=== PATIENT | male | born 1995 | race Caucasian/White ===

== ENCOUNTER 2019-02-01 17:39 | Emergency (ER) | payer BC ==
--- NOTE | 2019-02-01 18:37 | RAD REPORT ---
EXAM DESCRIPTION: RAD - Lumbar Spine 3 Views - 02/01/2019 6:23 pm CLINICAL HISTORY: PAIN Radiculopathy COMPARISON: <Comparisons> FINDINGS: Vertebral body heights appear maintained. No compression fracture noted. Disc spaces are m aintained. No spondylolysis or spondylolisthesis. IMPRESSION: Negative study.
[2019-02-01] MEDS ORDERED: DEXAMETHASONE 10 MG/ML VIAL ONE (18:52)
[2019-02-01 18:53] LABS: Urine Blood NEGATIVE (NEG); Urine Glucose NEGATIVE (NEG); Urine Protein NEGATIVE (NEG); Urine Specific Gravity 1.025 (1.005-1.030)
[2019-02-01] MEDS ORDERED: KETOROLAC 30 MG/ML INJ ONE (18:53)
[2019-02-01] MEDS ORDERED: HYDROCODONE/APAP 10/325 TAB ONE (18:53)
--- NOTE | 2019-02-01 19:10 | EDPHYS ---
Physician Documentation [facility] Name: Glendy Hung Age: 23 yrs Sex: Male : 1995 Arrival Date: 02/01/2019 Time: 17:44 Bed 14 Private MD: ERASTO Physician Adama Connelly HPI: 02/01 18:22 This 23 yrs old Male presents to ER via Ambulatory with complaints of Back roman Pain. 18:22 The patient presents with pain and decreased range of motion. The symptoms are located roman in the low back. Onset: The symptoms/episode began/occurred 2 day(s) ago. The pain radiates to the lumbar area, left low back and right low back. Associated signs and symptoms: The patient has no apparent associated signs or symptoms. Modifying factors: The patient symptoms are alleviated by remaining still, the patient symptoms are aggravated by any movement. Severity of symptoms: At their worst the symptoms were. The patient has experienced similar episodes in the past, a few times. Historical: - Allergies: 17:46 No Known Allergies; hj - PMHx: 17:46 None; hj - PSHx: 17:46 None; hj - Immunization history:: Adult Immunizations unknown. - Social history:: Smoking status: Patient/guardian denies using tobacco. - Family history:: not pertinent. - Ebola Screening: : Patient negative for fever greater than or equal to 101.5 degrees Fahrenheit, and additional compatible Ebola Virus Disease symptoms Patient denies exposure to infectious person Patient denies travel to an Ebola-affected area in the 21 days before illness onset No symptoms or risks identified at this time. ROS: 18:22 Constitutional: Negative for fever, chills, and weight loss, Eyes: Negative for injury, roman pain, redness, and discharge, ENT: Negative for injury, pain, and discharge, Neck: Negative for injury, pain, and swelling, Cardiovascular: Negative for chest pain, palpitations, and edema, Respiratory: Negative for shortness of breath, cough, wheezing, and pleuritic chest pain, Abdomen/GI: Negative for abdominal pain, nausea, vomiting, diarrhea, and constipation, : Negative for injury, bleeding, discharge, and swelling, MS/Extremity: Negative for injury and deformity, Skin: Negative for injury, rash, and discoloration, Neuro: Negative for headache, weakness, numbness, tingling, and seizure, Psych: Negative for depression, anxiety, suicide ideation, homicidal ideation, and hallucinations, Allergy/Immunology: Negative for hives, rash, and allergies, Endocrine: Negative for neck swelling, polydipsia, polyuria, polyphagia, and marked weight changes, Hematologic/Lymphatic: Negative for swollen nodes, abnormal bleeding, and unusual bruising. 18:22 Back: Positive for decreased range of motion, pain with movement. Exam: 18:22 Constitutional: This is a well developed, well nourished patient who is awake, alert, roman and in no acute distress. Head/Face: Normocephalic, atraumatic. Eyes: Pupils equal round and reactive to light, extra-ocular motions intact. Lids and lashes normal. Conjunctiva and sclera are non-icteric and not injected. Cornea within normal limits. Periorbital areas with no swelling, redness, or edema. ENT: Nares patent. No nasal discharge, no septal abnormalities noted. Tympanic membranes are normal and external auditory canals are clear. Oropharynx with no redness, swelling, or masses, exudates, or evidence of obstruction, uvula midline. Mucous membranes moist. Neck: Trachea midline, no thyromegaly or masses palpated, and no cervical lymphadenopathy. Supple, full range of motion without nuchal rigidity, or vertebral point tenderness. No Meningismus. Chest/axilla: Normal chest wall appearance and motion. Nontender with no deformity. No lesions are appreciated. Cardiovascular: Regular rate and rhythm with a normal S1 and S2. No gallops, murmurs, or rubs. Normal PMI, no JVD. No pulse deficits. Respiratory: Lungs have equal breath sounds bilaterally, clear to auscultation and percussion. No rales, rhonchi or wheezes noted. No increased work of breathing, no retractions or nasal flaring. Abdomen/GI: Soft, non-tender, with normal bowel sounds. No distension or tympany. No guarding or rebound. No evidence of tenderness throughout. Male : Normal genitalia with no discharge or lesions. Skin: Warm, dry with normal turgor. Normal color with no rashes, no lesions, and no evidence of cellulitis. MS/ Extremity: Pulses equal, no cyanosis. Neurovascular intact. Full, normal range of motion. Neuro: Awake and alert, GCS 15, oriented to person, place, time, and situation. Cranial nerves II-XII grossly intact. Motor strength 5/5 in all extremities. Sensory grossly intact. Cerebellar exam normal. Normal gait. Psych: Awake, alert, with orientation to person, place and time. Behavior, mood, and affect are within normal limits. 18:22 Back: pain, that is mild, that is moderate, ROM is painful, normal spinal alignment noted, CVA tenderness, is absent, muscle spasm, is appreciated in the left low back, left mid back, right mid back and right low back. Vital Signs: 17:46 BP 139 / 90; Pulse 84; Resp 16; Temp 98.2(O); Pulse Ox 100% on R/A; Weight 108.86 kg; hj Height 5 ft. 11 in. (180.34 cm); Pain 7/10; 17:46 Body Mass Index 33.47 (108.86 kg, 180.34 cm) MDM: 17:48 Patient medically screened. [facility] 19:10 Data reviewed: vital signs, nurses notes, lab test result(s), radiologic studies, plain roman films. 02/01 18:47 Order name: Urine Dipstick--Ancillary (enter results); Complete Time: 19:11 02/01 17:52 Order name: Lumbar Spine (3 Views) XRAY; Complete Time: 19:11 [facility] 02/01 17:52 Order name: Urine Dipstick-Ancillary (obtain specimen); Complete Time: 18:52 [facility] Administered Medications: 18:40 Drug: TORadol 60 mg Route: IM; Site: right deltoid; ls4 19:21 Follow up: Response: No adverse reaction; Pain is decreased tl2 18:40 Drug: Decadron 10 mg Route: IM; Site: left deltoid; ls4 19:21 Follow up: Response: No adverse reaction; Pain is decreased tl2 18:40 Drug: [place] 10 mg-325 mg 1 tabs Route: PO; ls4 19:21 Follow up: Response: No adverse reaction; Pain is decreased tl2 Disposition: 02/01/19 19:09 Discharged to Home. Impression: Low back pain, Sciatica. - Condition is Stable. - Discharge Instructions: Back Pain, Adult, Musculoskeletal Pain, Back Injury Prevention, [id number], Back Pain, Adult, [id number]. - Prescriptions for Ibuprofen 600 mg Oral Tablet - take 1 tablet by ORAL route every 8 hours As needed take with food; 26 tablet. Tylenol- Codeine #3 300-30 mg Oral Tablet - take 2 tablets by ORAL route every 6 hours As needed; 26 tablet. Medrol ([place]) 4 mg Oral Tablets, Dose Pack - take 1 tablet by ORAL route as directed - follow package instructions; 1 packet. Cyclobenzaprine 5 mg Oral Tablet - take 1 tablet by ORAL route 3 times per day As needed; 15 tablet. - Medication Reconciliation Form, Thank You Letter, Antibiotic Education, Prescription Opioid Use form. - Follow up: Private Physician; When: 2 - 3 days; Reason: Recheck today's complaints, Continuance of care, Re-evaluation by your physician. - Problem is new. - Symptoms have improved. Signatures: Dispatcher [employer] EDAdama Loving MD MD cha Joaquin, Henry RN RN hj Alondra Baac RN RN tl2 Maryse Sosa RN RN ls4 Corrections: (The following items were deleted from the chart) 19:22 19:09 02/01/2019 19:09 Discharged to Home. Impression: Low back pain; Sciatica. tl2 Condition is Stable. Discharge Instructions: Back Pain, Adult, Musculoskeletal Pain, Back Injury Prevention, [id number], Back Pain, Adult, Egwr-[id number]. Prescriptions for Ibuprofen 600 mg Oral Tablet - take 1 tablet by ORAL route every 8 hours As needed take with food; 26 tablet, Tylenol-Codeine #3 300-30 mg Oral Tablet - take 2 tablets by ORAL route every 6 hours As needed; 26 tablet, Medrol (Gib[place]) 4 mg Oral Tablets, Dose Pack - take 1 tablet by ORAL route as directed - follow package instructions; 1 packet, Cyclobenzaprine 5 mg Oral Tablet - take 1 tablet by ORAL route 3 times per day As needed; 15 tablet. and Forms are Medication Reconciliation Form, Thank You Letter, Antibiotic Education, Prescription Opioid Use. Follow up: Private Physician; When: 2 - 3 days; Reason: Recheck today's complaints, Continuance of care, Re-evaluation by your physician. Problem is new. Symptoms have improved. roman
--- NOTE | 2019-02-01 19:10 | ER ---
Nurse's Notes [facility] Name: Glendy Hung Age: 23 yrs Sex: Male : 1995 Arrival Date: 02/01/2019 Time: 17:44 Bed 14 Private MD: Diagnosis: Low back pain;Sciatica Presentation: 02/01 17:44 Presenting complaint: Patient states: for the last couple of days, my lower back is hj hurting; denies trauma to the area; now the pain is shooting down my legs; took ibuprofen but its not helping; denies N/V; pain is 7/10;. Transition of care: patient was not received from another setting of care. Onset of symptoms was February 01, 2019. Risk Assessment: Do you want to hurt yourself or someone else? Patient reports no desire to harm self or others. Initial Sepsis Screen: Does the patient meet any 2 criteria? No. Patient's initial sepsis screen is negative. Does the patient have a suspected source of infection? No. Patient's initial sepsis screen is negative. Care prior to arrival: None. 17:44 Method Of Arrival: Ambulatory 17:44 Acuity: PRAVEENA 4 hj Triage Assessment: 18:54 General: Appears in no apparent distress. Behavior is calm, cooperative. Derm: Reports ls4 pain that is 8 out of 10 on a pain scale. Musculoskeletal: No signs and/or symptoms reported regarding the musculoskeletal system. Circulation, motion, and sensation intact. Capillary refill < 3 seconds, Range of motion: intact in all extremities. Historical: - Allergies: 17:46 No Known Allergies; hj - PMHx: 17:46 None; hj - PSHx: 17:46 None; hj - Immunization history:: Adult Immunizations unknown. - Social history:: Smoking status: Patient/guardian denies using tobacco. - Family history:: not pertinent. - Ebola Screening: : Patient negative for fever greater than or equal to 101.5 degrees Fahrenheit, and additional compatible Ebola Virus Disease symptoms Patient denies exposure to infectious person Patient denies travel to an Ebola-affected area in the 21 days before illness onset No symptoms or risks identified at this time. Screenin:54 Abuse screen: Denies threats or abuse. Denies injuries from another. Nutritional ls4 screening: No deficits noted. Tuberculosis screening: No symptoms or risk factors identified. The patient passed the bedside swallow screening. Oral medications may be given as ordered. Contact Physician for further diet orders. Fall Risk None identified. Assessment: 18:52 Pain: Complains of pain in right mid back and left mid back and right low back and left ls4 low back and lumbar area Pain radiates to right leg and left leg Pain currently is 8 out of 10 on a pain scale. Neuro: Level of Consciousness is awake, alert, obeys commands, Oriented to person, place, time, situation, Cloth Trimmer Hand are equal bilaterally Moves all extremities. Gait is steady. Cardiovascular: No deficits noted. Respiratory: No deficits noted. GI: No deficits noted. Musculoskeletal: Circulation, motion, and sensation intact. Capillary refill < 3 seconds, Range of motion: intact in all extremities, Swelling absent. 19:20 Reassessment: Patient appears in no apparent distress at this time. Patient and/or tl2 family updated on plan of care and expected duration. Pain level reassessed. Patient is alert, oriented x 3, equal unlabored respirations, skin warm/dry/pink. pt verbalized understanding of discharge instructions, need for follow up and prescription usage. Vital Signs: 17:46 BP 139 / 90; Pulse 84; Resp 16; Temp 98.2(O); Pulse Ox 100% on R/A; Weight 108.86 kg; hj Height 5 ft. 11 in. (180.34 cm); Pain 7/10; 17:46 Body Mass Index 33.47 (108.86 kg, 180.34 cm) ED Course: 17:44 Patient arrived in ED. 17:46 Triage completed. 17:46 Arm band placed on right wrist. 17:48 Adama Connelly MD is Attending Physician. [facility] 17:49 Maryse Sosa, JORJE is Primary Nurse. ls4 18:20 Lumbar Spine (3 Views) XRAY In Process Unspecified. EDMS 18:54 Patient has correct armband on for positive identification. Bed in low position. Call ls4 light in reach. Side rails up X 1. 18:54 No provider procedures requiring assistance completed. Patient did not have IV access ls4 during this emergency room visit. Administered Medications: 18:40 Drug: TORadol 60 mg Route: IM; Site: right deltoid; ls4 19:21 Follow up: Response: No adverse reaction; Pain is decreased tl2 18:40 Drug: Decadron 10 mg Route: IM; Site: left deltoid; ls4 19:21 Follow up: Response: No adverse reaction; Pain is decreased tl2 18:40 Drug: [place] 10 mg-325 mg 1 tabs Route: PO; ls4 19:21 Follow up: Response: No adverse reaction; Pain is decreased tl2 Outcome: 19:09 Discharge ordered by . roman 19:20 Discharged to home ambulatory, with family. tl2 19:20 Condition: stable 19:20 Discharge instructions given to patient, Instructed on discharge instructions, follow up and referral plans. medication usage, Demonstrated understanding of instructions, follow-up care, medications, Prescriptions given X 4. 19:22 Patient left the ED. tl2 Signatures: Dispatcher [employer] EDMS Adama Connelly MD MD cha Joaquin, Henry RN Alondra Noe RN JORJE tl2 Maryse Sosa RN RN ls4 Corrections: (The following items were deleted from the chart) 17:48 17:46 Pulse 84bpm; Resp 16bpm; Pulse Ox 100% RA; Temp 98.2F Oral; 108.86 kg; Height 5 hj ft. 11 in.; BMI: 33.4; Pain 7/10; hj 17:50 17:44 Acuity: PRAVEENA 4 hj hj 17:53 17:44 Acuity: PRAVEENA 3 hj hj 17:54 17:44 Presenting complaint: Patient states: for the last couple of days, my lower is hj hurting; denies trauma to the area; now the pain is shooting down my legs; took ibuprofen but its not helping; denies N/V; pain is 7/10; hj
== END 2019-02-01 19:22 | disposition home or self-care (01) ==
LOC: ER 17:39
DX: M54.5 Low back pain (principal); M54.30 Sciatica, unspecified side
CPT/HCPCS: 72100; 81003; 96372; 99283; J1100

== ENCOUNTER 2019-09-09 21:25 | Emergency (ER) | payer BC ==
[2019-09-09] MEDS ORDERED: IBUPROFEN 400 MG TAB ONE (22:22)
[2019-09-09] MEDS ORDERED: OSELTAMIVIR 75 MG CAP ONE (22:22)
--- NOTE | 2019-09-09 22:27 | EDPHYS ---
Physician Documentation [facility] Name: Glendy Hung Age: 24 yrs Sex: Male : 1995 Arrival Date: 09/09/2019 Time: 21:28 Bed 11 Private MD: ED Physician Adama Connelly HPI: 09/09 22:09 This 24 yrs old Male presents to ER via Ambulatory with complaints of Flu roman Symptoms. 22:09 fever and malaise. Onset: The symptoms/episode began/occurred 1 day(s) ago. The patient roman reports fever, that was measured at 99 degrees Fahrenheit. Modifying factors: there are no obvious modifying factors. Associated signs and symptoms: Pertinent positives: arthralgias, cough. Severity of symptoms: At their worst the symptoms were mild in the emergency department the symptoms are unchanged. The patient has experienced similar episodes in the past, a few times. Historical: - Allergies: 21:43 No Known Allergies; iw - Home Meds: 21:43 None [Active]; iw - PMHx: 21:43 None; iw - PSHx: 21:43 None; iw - Immunization history:: Adult Immunizations. - Coronavirus screen:: The patient has NOT traveled to [place], [place], or [place] in the past 14 days. Proceed with normal triage process as indicated. - Social history:: Smoking status: Patient denies any tobacco usage or history of. Smoking status: . - Family history:: not pertinent. - Ebola Screening: : Patient negative for fever greater than or equal to 101.5 degrees Fahrenheit, and additional compatible Ebola Virus Disease symptoms Patient denies exposure to infectious person Patient denies travel to an Ebola-affected area in the 21 days before illness onset No symptoms or risks identified at this time. ROS: 22:09 Constitutional: Negative for fever, chills, and weight loss, Eyes: Negative for injury, roman pain, redness, and discharge, ENT: Negative for injury, pain, and discharge, Neck: Negative for injury, pain, and swelling, Respiratory: Negative for shortness of breath, cough, wheezing, and pleuritic chest pain, Abdomen/GI: Negative for abdominal pain, nausea, vomiting, diarrhea, and constipation, Back: Negative for injury and pain, : Negative for injury, bleeding, discharge, and swelling, Skin: Negative for injury, rash, and discoloration, Neuro: Negative for headache, weakness, numbness, tingling, and seizure, Psych: Negative for depression, anxiety, suicide ideation, homicidal ideation, and hallucinations, Allergy/Immunology: Negative for hives, rash, and allergies, Endocrine: Negative for neck swelling, polydipsia, polyuria, polyphagia, and marked weight changes, Hematologic/Lymphatic: Negative for swollen nodes, abnormal bleeding, and unusual bruising. 22:09 Cardiovascular: Positive for palpitations. Exam: 22:09 Constitutional: This is a well developed, well nourished patient who is awake, alert, roman and in no acute distress. Head/Face: Normocephalic, atraumatic. Eyes: Pupils equal round and reactive to light, extra-ocular motions intact. Lids and lashes normal. Conjunctiva and sclera are non-icteric and not injected. Cornea within normal limits. Periorbital areas with no swelling, redness, or edema. ENT: Nares patent. No nasal discharge, no septal abnormalities noted. Tympanic membranes are normal and external auditory canals are clear. Oropharynx with no redness, swelling, or masses, exudates, or evidence of obstruction, uvula midline. Mucous membranes moist. Neck: Trachea midline, no thyromegaly or masses palpated, and no cervical lymphadenopathy. Supple, full range of motion without nuchal rigidity, or vertebral point tenderness. No Meningismus. Chest/axilla: Normal chest wall appearance and motion. Nontender with no deformity. No lesions are appreciated. Respiratory: Lungs have equal breath sounds bilaterally, clear to auscultation and percussion. No rales, rhonchi or wheezes noted. No increased work of breathing, no retractions or nasal flaring. Abdomen/GI: Soft, non-tender, with normal bowel sounds. No distension or tympany. No guarding or rebound. No evidence of tenderness throughout. Back: No spinal tenderness. No costovertebral tenderness. Full range of motion. Male : Normal genitalia with no discharge or lesions. Skin: Warm, dry with normal turgor. Normal color with no rashes, no lesions, and no evidence of cellulitis. 22:09 Cardiovascular: Rate: tachycardic, Rhythm: regular, Pulses: Heart sounds: normal, Edema: is not appreciated, JVD: is not appreciated. Vital Signs: 21:43 BP 134 / 88; Pulse 115; Resp 18; Temp 99.2; Pulse Ox 100% on R/A; Weight 113.4 kg; iw Height 5 ft. 11 in. (180.34 cm); Pain 7/10; 21:43 Body Mass Index 34.87 (113.40 kg, 180.34 cm) iw MDM: 21:49 Patient medically screened. [facility] 21:49 Patient medically screened. [facility] 22:16 Data reviewed: vital signs, nurses notes, lab test result(s). [facility] 09/09 21:44 Order name: Flu 09/09 22:09 Order name: PO challenge; Complete Time: 22:24 roman Administered Medications: 22:24 Drug: Motrin 800 mg Route: PO; iw 22:34 Follow up: Response: No adverse reaction iw 22:24 Drug: Tamiflu 75 mg Route: PO; iw 22:34 Follow up: Response: No adverse reaction iw Disposition: 09/09/19 22:26 Discharged to Home. Impression: Fever, unspecified, Malaise and fatigue. - Condition is Stable. - Discharge Instructions: Fever, Adult, Weakness, Weakness, Vyhv-[id number], Fever, Adult, Nzuo-[id number]. - Prescriptions for Tamiflu 75 mg Oral Capsule - take 1 tablet by ORAL route every 12 hours for 5 days; 10 tablet. Ibuprofen 600 mg Oral Tablet - take 1 tablet by ORAL route every 6 hours As needed take with food; 20 tablet. - Medication Reconciliation Form, Thank You Letter, Antibiotic Education, Prescription Opioid Use, Work release form form. - Follow up: Private Physician; When: 2 - 3 days; Reason: Recheck today's complaints, Continuance of care, Re-evaluation by your physician. - Problem is new. - Symptoms have improved. Signatures: Dispatcher [employer] Adama Tobar MD MD cha Williams, Irene, JORJE RN iw Corrections: (The following items were deleted from the chart) 22:46 22:26 09/09/2019 22:26 Discharged to Home. Impression: Fever, unspecified; Malaise and iw fatigue. Condition is Stable. Discharge Instructions: Fever, Adult, Weakness, Weakness, [id number], Fever, Adult, [id number]-[id number]. Prescriptions for Tamiflu 75 mg Oral Capsule - take 1 tablet by ORAL route every 12 hours for 5 days; 10 tablet. and Forms are Medication Reconciliation Form, Thank You Letter, Antibiotic Education, Prescription Opioid Use. Follow up: Private Physician; When: 2 - 3 days; Reason: Recheck today's complaints, Continuance of care, Re-evaluation by your physician. Problem is new. Symptoms have improved. roman
--- NOTE | 2019-09-09 22:27 | ER ---
Nurse's Notes [facility] Name: Glendy Hung Age: 24 yrs Sex: Male : 1995 Arrival Date: 09/09/2019 Time: 21:28 Bed 11 Private MD: Diagnosis: Fever, unspecified;Malaise and fatigue Presentation: 09/09 21:42 Presenting complaint: Patient states: started feeling dizzy and light headed today , iw has fever,. chill, hands and feet cramping, nausea no vomiting, mild diarrhea, headache and body aches. Transition of care: patient was not received from another setting of care. Onset of symptoms was September 09, 2019. Risk Assessment: Do you want to hurt yourself or someone else? Patient reports no desire to harm self or others. Initial Sepsis Screen: Does the patient meet any 2 criteria? No. Patient's initial sepsis screen is negative. Does the patient have a suspected source of infection? No. Patient's initial sepsis screen is negative. Care prior to arrival: None. 21:42 Method Of Arrival: Ambulatory iw 21:42 Acuity: PRAVEENA 4 iw Triage Assessment: 22:30 General: Appears in no apparent distress. Behavior is calm. iw Historical: - Allergies: 21:43 No Known Allergies; iw - Home Meds: 21:43 None [Active]; iw - PMHx: 21:43 None; iw - PSHx: 21:43 None; iw - Immunization history:: Adult Immunizations. - Coronavirus screen:: The patient has NOT traveled to [place], [place], or [place] in the past 14 days. Proceed with normal triage process as indicated. - Social history:: Smoking status: Patient denies any tobacco usage or history of. Smoking status: . - Family history:: not pertinent. - Ebola Screening: : Patient negative for fever greater than or equal to 101.5 degrees Fahrenheit, and additional compatible Ebola Virus Disease symptoms Patient denies exposure to infectious person Patient denies travel to an Ebola-affected area in the 21 days before illness onset No symptoms or risks identified at this time. Screenin:30 Nutritional screening: No deficits noted. Tuberculosis screening: No symptoms or risk iw factors identified. Fall Risk None identified. 22:45 Abuse screen: Denies threats or abuse. Denies injuries from another. iw Assessment: 22:30 General: Appears in no apparent distress. Behavior is calm, cooperative. General: iw Reports chills for fever for feeling ill for fatigue for. Pain: Complains of pain in body aches. Neuro: Level of Consciousness is awake, alert, obeys commands, Oriented to person, place, time, situation, Moves all extremities. Full function. Cardiovascular: Patient's skin is warm and dry. Respiratory: Respiratory effort is even, unlabored, Respiratory pattern is regular, symmetrical. GI: Reports nausea. Derm: Skin is intact, is healthy with good turgor. Musculoskeletal: Range of motion: intact in all extremities. Vital Signs: 21:43 BP 134 / 88; Pulse 115; Resp 18; Temp 99.2; Pulse Ox 100% on R/A; Weight 113.4 kg; iw Height 5 ft. 11 in. (180.34 cm); Pain 7/10; 21:43 Body Mass Index 34.87 (113.40 kg, 180.34 cm) iw ED Course: 21:28 Patient arrived in ED. jg7 21:43 Triage completed. iw 21:49 Adama Connelly MD is Attending Physician. orman 21:51 Althea Michelle, RN is Primary Nurse. iw 22:25 Arm band placed on. iw 22:44 Patient has correct armband on for positive identification. iw 22:45 No provider procedures requiring assistance completed. Patient did not have IV access iw during this emergency room visit. Administered Medications: 22:24 Drug: Motrin 800 mg Route: PO; iw 22:34 Follow up: Response: No adverse reaction iw 22:24 Drug: Tamiflu 75 mg Route: PO; iw 22:34 Follow up: Response: No adverse reaction iw Outcome: 22:26 Discharge ordered by . roman 22:45 Discharged to home ambulatory, with family. iw 22:45 Condition: good 22:45 Discharge instructions given to patient, Instructed on discharge instructions, follow up and referral plans. Demonstrated understanding of instructions, follow-up care, medications, Prescriptions given X 1. 22:46 Patient left the ED. iw Signatures: Adama Connelly MD MD cha Williams, Irene, RN RN Joann Penaloza [facility] [place]
[2019-09-09 22:58] VITALS: BP 134/88; TEMP 99.2; O2SAT 100
== END 2019-09-09 22:46 | disposition home or self-care (01) ==
LOC: ER 21:25
DX: R50.9 Fever, unspecified (principal); R53.81 Other malaise; R53.83 Other fatigue
CPT/HCPCS: 87804; 99283

== ENCOUNTER 2020-11-13 11:03 | Emergency (ER) | payer BC ==
--- OUTSIDE RECORDS SUMMARY | 2020-11-13 11:06 | XMS REPORT | Continuity of Care Document ---
:1995 Author Organization [facility] t Address [address] [place] [address] Care Team Providers Name Role Phone Only, Test Attending Clinician Unavailable Doctor Unassigned, Name Attending Clinician Unavailable Problems This patient has no known problems. Allergies, Adverse Reactions, Alerts This patient has no known allergies or adverse reactions. Medications This patient has no known medications. Procedures This patient has no known procedures. Encounters Start End Encounter Admission Attending Care Care Encounter Source Date/Time Date/Time Type Type Clinicians Facility Department ID 2020-10-11 2020-10-11 Laboratory Only, [facility] [id number] 09:59:28 10:14:28 Only Test Reyes [id number] [place] [id number] [place] [id number] 2020-10-11 2020-10-11 Orders Doctor IMAN [id number] 00:00:00 00:00:00 Only UnassignedRICKI [id number] [place] [facility] [id number] Results This patient has no known results.
[2020-11-13] MEDS ORDERED: ACETAMINOPHEN 500 MG TAB ONE (11:40)
[2020-11-13] MEDS ORDERED: NA CHLORIDE 0.9% 1,000 ML ONE (11:40)
--- NOTE | 2020-11-13 11:43 | RAD REPORT ---
EXAM DESCRIPTION: CT - [id number] - 11/13/2020 11:35 am CLINICAL HISTORY: Trauma, head and neck injury. PAIN COMPARISON: No comparisons TECHNIQUE: Axial 5 mm thick images of the head were obtained. Axial 2 mm thick images of the cervical spine were obtained with sagittal and coronal reconstruction images generated and reviewed. All CT scans are performed using dose optimization technique as appropriate and may include automated exposure control or mA/KV adjustment according to patient size. FINDINGS: CT HEAD WITHOUT CONTRAST: No acute hemorrhage, hydrocephalus or extra-axial collection is identified.No areas of brain edema or midline shift. The paranasal sinuses and mastoids are clear.The calvarium is intact. CT CERVICAL SPINE WITHOUT CONTRAST: No fracture or subluxation.No prevertebral soft tissues swelling is identified. IMPRESSION: No acute intracranial or cervical spine findings.
[2020-11-13 11:47] LABS: Absolute Lymphocytes (CBC) 0.7 K/uL (0.7-4.9); Basophils % 0.5 % (0-1.3); Hematocrit 41.8 % (39.6-49.0); Lymphocytes % 10.3 % (15.3-44.8); MPV 8.6 fL (7.6-11.3); RBC Red Blood Cell Count 4.74 M/uL (4.33-5.43)
[2020-11-13 11:51] LABS: Protime INR 1.14
--- NOTE | 2020-11-13 11:58 | RAD REPORT ---
EXAM DESCRIPTION: RAD - Chest Single View - 11/13/2020 11:51 am CLINICAL HISTORY: CONGESTION Chest pain. COMPARISON: CHEST PA AND LAT 2 VIEW dated 04/19/2013; ABDOMEN ACUTE SERIES dated 04/16/2011 FINDINGS: Portable technique limits examination quality. The lungs are grossly clear. The heart is normal in size. No displaced fractures. IMPRESSION: No acute intrathoracic process suspected.
[2020-11-13 12:21] LABS: ALT/SGPT 38 U/L (12-78); AST/SGOT 18 U/L (15-37); Alkaline Phosphatase 71 U/L (45-117); BUN Blood Urea Nitrogen 9 mg/dL (7-18); Bicarbonate 27 mmol/L (21-32); Bilirubin Direct < 0.1 mg/dL (0-0.2); Bilirubin Total 0.3 mg/dL (0.2-1.0); CKMB Creatine Kinase MB < 1.0 ng/mL (0.3-3.6); Creatine Phosphokinase 143 U/L (39-308); Glucose Level 104 mg/dL (74-106); Lipase 80 U/L (73-393); Potassium 3.8 mmol/L (3.5-5.1); Sodium Level 140 mmol/L (136-145); Troponin (Emerg Dept Use Only) < 0.02 ng/mL (0.0-0.045)
[2020-11-13 13:05] LABS: SARS-COV-2 RT PCR POSITIVE (NEGATIVE)
--- NOTE | 2020-11-13 13:20 | ER ---
Nurse's Notes [facility] Name: Glendy Hung Age: 25 yrs Sex: Male : 1995 Arrival Date: 11/13/2020 Time: 11:04 Bed 8 Private MD: Diagnosis: Coronavirus infection, unspecified;Streptococcal pharyngitis Presentation: 11/13 11:05 Chief complaint: EMS states: pt was at home c/o fever and flu like symptoms, states tw2 near syncopal episode, able to ambulate down the stairs to our stretcher, states covid exposure 3 weeks ago, at home tested negative, states he took dayquil earlier about 5am, vs stable. Coronavirus screen: fever, muscle pain, Client presents with at least one sign or symptom that may indicate coronavirus-19. Standard/surgical mask placed on the client. Provider contacted for isolation considerations. Ebola Screen: Patient denies travel to an Ebola-affected area in the 21 days before illness onset. Initial Sepsis Screen: Does the patient meet any 2 criteria? HR > 90 bpm. Does the patient have a suspected source of infection? No. Patient's initial sepsis screen is negative. Risk Assessment: Do you want to hurt yourself or someone else? Patient reports no desire to harm self or others. Onset of symptoms was November 13, 2020. 11:05 Method Of Arrival: EMS: [facility] tw2 11:05 Acuity: PRAVEENA 3 tw2 Triage Assessment: 11:08 General: Appears in no apparent distress. obese, unkempt, Behavior is calm, tw2 cooperative, appropriate for age. Pain: Denies pain. EENT: No signs and/or symptoms were reported regarding the EENT system. EENT: Reports. Neuro: Level of Consciousness is awake, alert, obeys commands, Oriented to person, place, time, situation. Cardiovascular: Patient's skin is warm and dry. Respiratory: Airway is patent Respiratory effort is even, unlabored, Respiratory pattern is regular, symmetrical. GI: No signs and/or symptoms were reported involving the gastrointestinal system. : No signs and/or symptoms were reported regarding the genitourinary system. Derm: No signs and/or symptoms reported regarding the dermatologic system. Musculoskeletal: Range of motion: intact in all extremities. Historical: - Allergies: 11:08 No Known Allergies; tw2 - Home Meds: 11:08 None [Active]; tw2 - PMHx: 11: None; tw2 - PSHx: 11:08 None; tw2 - Immunization history:: Adult Immunizations. - Social history:: Smoking status: Patient/guardian denies using alcohol, street drugs, The patient lives with family. - Family history:: not pertinent. Screenin:12 Abuse screen: Denies threats or abuse. Nutritional screening: No deficits noted. tw2 Tuberculosis screening: No symptoms or risk factors identified. Fall Risk None identified. Assessment: 11:10 General: SEE TRIAGE NOTE. bp 12:23 Reassessment: Patient appears in no apparent distress at this time. Patient and/or tw2 family updated on plan of care and expected duration. Pain level reassessed. Patient is alert, oriented x 3, equal unlabored respirations, skin warm/dry/pink. 13:15 Reassessment: No changes from previously documented assessment. Patient and/or family bp updated on plan of care and expected duration. Pain level reassessed. Patient is alert, oriented x 3, equal unlabored respirations, skin warm/dry/pink. 14:15 Reassessment: PT D/C HOME AMBULATORY, DX WITH CORONAVIRUS AND STREP INFECTION. bp Vital Signs: 11:05 BP 128 / 62; Pulse 102; Resp 18; Temp 101.5(O); Pulse Ox 98% on R/A; Weight 106.59 kg; tw2 Height 5 ft. 11 in. (180.34 cm) (R); 12:14 BP 115 / 62; Pulse 88; Resp 17; Pulse Ox 97% on R/A; tw2 14:15 BP 110 / 65; Pulse 91; Resp 15; Temp 98.9; Pulse Ox 97% ; bp 11:05 Body Mass Index 32.78 (106.59 kg, 180.34 cm) tw2 ED Course: 11:04 Patient arrived in ED. as 11:04 Bed in low position. Call light in reach. Pulse ox on. NIBP on. tw2 11:08 Triage completed. tw2 11:09 Grayson Valencia MD is Attending Physician. ma2 11:11 Arm band placed on. tw2 11:15 Atilio Schmitt, JORJE is Primary Nurse. bp 11:20 Maintain EMS IV. Dressing intact. Good blood return noted. Site clean \T\ dry. Gauge \T\ bp site: 18 G R FA. 11:34 CT Head C Spine In Process Unspecified. EDMS 11:51 CXR XRAY In Process Unspecified. EDMS 14:15 No provider procedures requiring assistance completed. IV discontinued, intact, bp bleeding controlled, No redness/swelling at site. Pressure dressing applied. Administered Medications: 11:30 Drug: Tylenol 1000 mg Route: PO; bp 14:18 Follow up: Response: Temperature is decreased bp 11:30 Drug: NS 0.9% 1000 ml Route: IV; Rate: 1 bolus; Site: right antecubital; bp 14:19 Follow up: IV Status: Completed infusion; IV Intake: 1000ml bp 13:08 Drug: Augmentin (Amoxicillin-Clavulanate) 875 mg Route: PO; bp 14:18 Follow up: Response: No adverse reaction bp Intake: 14:19 IV: 1000ml; Total: 1000ml. bp Outcome: 13:20 Discharge ordered by . jessica 14:17 Discharged to home ambulatory. bp 14:17 Condition: stable 14:17 Discharge instructions given to patient, Instructed on discharge instructions, follow up and referral plans. medication usage, Demonstrated understanding of instructions, follow-up care, medications, Prescriptions given X 4. 14:20 Patient left the ED. bp Signatures: Dispatcher [employer] Yakelin Carbone Tara, RN RN tw2 Atilio Schmitt RN RN bp Grayson Valencia MD MD ma2 Corrections: (The following items were deleted from the chart) 11:11 11:05 Chief complaint: EMS states: pt was at home c/o fever and flu like symptoms, tw2 states covid exposure 3 weeks ago, at home tested negative, states he took dayquil earlier about 5am, vs stable, tw2 14:17 12:20 Maintain EMS IV. Dressing intact. Good blood return noted. Site clean \T\ dry. bp Gauge \T\ site: 18 G R FA. bp
--- NOTE | 2020-11-13 13:20 | EDPHYS ---
Physician Documentation [facility] Name: Glendy Hung Age: 25 yrs Sex: Male : 1995 Arrival Date: 11/13/2020 Time: 11:04 Bed 8 Private MD: ED Physician Grayson Valencia HPI: 11/13 12:01 This 25 yrs old Male presents to ER via EMS with complaints of Fever, Flu ma2 Symptoms. 12:01 The patient reports fever, not measured (subjective). Onset: The symptoms/episode ma2 began/occurred suddenly, 1 day(s) ago. Associated signs and symptoms: Pertinent positives: cough, runny nose, Pertinent negatives: abdominal pain, arthralgias, chest pain, chills, cough, night sweats, runny nose. Severity of symptoms: At their worst the symptoms were very mild in the emergency department the symptoms are unchanged. The patient has not experienced similar symptoms in the past. has covid, he also has fever and passed out while urinating, no health issues or vomiting, no cough or any other symptoms. no similar hx in the past. no family hx of sudden cardiac or drowning. never had this before . Historical: - Allergies: 11:08 No Known Allergies; tw2 - Home Meds: 11:08 None [Active]; tw2 - PMHx: 11:08 None; tw2 - PSHx: 11:08 None; tw2 - Immunization history:: Adult Immunizations. - Social history:: Smoking status: Patient/guardian denies using alcohol, street drugs, The patient lives with family. - Family history:: not pertinent. ROS: 12:01 Constitutional: Negative for fever, chills, and weight loss. ma2 12:01 All other systems are negative. Exam: 12:01 Constitutional: This is a well developed, well nourished patient who is awake, alert, ma2 and in no acute distress. Head/Face: Normocephalic, atraumatic. Eyes: Pupils equal round and reactive to light, extra-ocular motions intact. Lids and lashes normal. Conjunctiva and sclera are non-icteric and not injected. Cornea within normal limits. Periorbital areas with no swelling, redness, or edema. ENT: Nares patent. No nasal discharge, no septal abnormalities noted. Tympanic membranes are normal and external auditory canals are clear. Oropharynx with no redness, swelling, or masses, exudates, or evidence of obstruction, uvula midline. Mucous membranes moist. Neck: Trachea midline, no thyromegaly or masses palpated, and no cervical lymphadenopathy. Supple, full range of motion without nuchal rigidity, or vertebral point tenderness. No Meningismus. Chest/axilla: Normal chest wall appearance and motion. Nontender with no deformity. No lesions are appreciated. Cardiovascular: Regular rate and rhythm with a normal S1 and S2. No gallops, murmurs, or rubs. Normal PMI, no JVD. No pulse deficits. Respiratory: Lungs have equal breath sounds bilaterally, clear to auscultation and percussion. No rales, rhonchi or wheezes noted. No increased work of breathing, no retractions or nasal flaring. Abdomen/GI: Soft, non-tender, with normal bowel sounds. No distension or tympany. No guarding or rebound. No evidence of tenderness throughout. Back: No spinal tenderness. No costovertebral tenderness. Full range of motion. Skin: Warm, dry with normal turgor. Normal color with no rashes, no lesions, and no evidence of cellulitis. MS/ Extremity: Pulses equal, no cyanosis. Neurovascular intact. Full, normal range of motion. Neuro: Awake and alert, GCS 15, oriented to person, place, time, and situation. Cranial nerves II-XII grossly intact. Motor strength 5/5 in all extremities. Sensory grossly intact. Cerebellar exam normal. Normal gait. Vital Signs: 11:05 BP 128 / 62; Pulse 102; Resp 18; Temp 101.5(O); Pulse Ox 98% on R/A; Weight 106.59 kg; tw2 Height 5 ft. 11 in. (180.34 cm) (R); 12:14 BP 115 / 62; Pulse 88; Resp 17; Pulse Ox 97% on R/A; tw2 14:15 BP 110 / 65; Pulse 91; Resp 15; Temp 98.9; Pulse Ox 97% ; bp 11:05 Body Mass Index 32.78 (106.59 kg, 180.34 cm) tw2 MDM: 11:09 Patient medically screened. ma2 12:01 Differential diagnosis: URI, bronchitis, pneumonia UTI, gastroenteritis, meningitis. [facility] 13:19 Data reviewed: vital signs, nurses notes. Counseling: I had a detailed discussion with [facility] the patient and/or guardian regarding: the historical points, exam findings, and any diagnostic results supporting the discharge/admit diagnosis, the presence of at least one elevated blood pressure reading (>120/80) during this emergency department visit, the need for outpatient follow up. Response to treatment: the patient's symptoms have markedly improved after treatment. 11/13 11:12 Order name: Flu [facility] 11/13 11:12 Order name: Strep [facility] 11/13 11:12 Order name: Basic Metabolic Panel [facility] 11/13 11:12 Order name: CBC with Diff [facility] 11/13 11:12 Order name: Ckmb [facility] 11/13 11:12 Order name: CPK [facility] 11/13 11:12 Order name: Hepatic Function [facility] 11/13 11:12 Order name: Lipase [facility] 11/13 11:12 Order name: Magnesium [facility] 11/13 11:12 Order name: Protime (+inr); Complete Time: 12:51 [facility] 11/13 11:12 Order name: Ptt, Activated; Complete Time: 12:51 [facility] 11/13 11:12 Order name: Troponin (emerg Dept Use Only); Complete Time: 12:51 [facility] 11/13 11:12 Order name: CXR XRAY; Complete Time: 12:51 [facility] 11/13 11:12 Order name: Droplet/Contact Precautions; Complete Time: 11:15 [facility] 11/13 11:12 Order name: CT Head C Spine; Complete Time: 12:51 [facility] 11/13 11:12 Order name: EKG; Complete Time: 11:13 [facility] 11/13 11:13 Order name: Group A Streptococcus Rapid Sc; Complete Time: 12:51 [facility] 11/13 11:13 Order name: Basic Metabolic Panel; Complete Time: 12:51 [facility] 11/13 11:13 Order name: CBC with Automated Diff; Complete Time: 12:51 [facility] 11/13 11:13 Order name: CKMB Creatine Kinase MB; Complete Time: 12:51 [facility] 11/13 11:13 Order name: Creatine Phosphokinase; Complete Time: 12:51 [facility] 11/13 11:13 Order name: Liver (Hepatic) Function; Complete Time: 12:51 [facility] 11/13 11:13 Order name: Lipase; Complete Time: 12:51 [facility] 11/13 11:13 Order name: Magnesium; Complete Time: 12:51 [facility] 11/13 13:05 Order name: COVID-19/FLU A+B; Complete Time: 13:19 [facility] 11/13 11:12 Order name: Labs collected and sent; Complete Time: 11:56 ma2 11/13 11:12 Order name: O2 Per Protocol; Complete Time: 11:15 ma2 11/13 11:12 Order name: Cardiac monitoring; Complete Time: 11:55 ma2 11/13 11:12 Order name: EKG - Nurse/Tech; Complete Time: 11:55 ma2 11/13 11:12 Order name: IV Saline Lock; Complete Time: 11:16 ma2 11/13 11:12 Order name: NPO; Complete Time: 11:16 ma2 11/13 11:12 Order name: O2 Sat Monitoring; Complete Time: 11:16 ma2 11/13 11:12 Order name: Urine Dipstick-Ancillary (obtain specimen); Complete Time: 11:41 ma2 Administered Medications: 11:30 Drug: Tylenol 1000 mg Route: PO; bp 14:18 Follow up: Response: Temperature is decreased bp 11:30 Drug: NS 0.9% 1000 ml Route: IV; Rate: 1 bolus; Site: right antecubital; bp 14:19 Follow up: IV Status: Completed infusion; IV Intake: 1000ml bp 13:08 Drug: Augmentin (Amoxicillin-Clavulanate) 875 mg Route: PO; bp 14:18 Follow up: Response: No adverse reaction bp Disposition: 11/13/20 13:20 Discharged to Home. Impression: Coronavirus infection, unspecified, Streptococcal pharyngitis. - Condition is Stable. - Discharge Instructions: Strep Throat, [id number], COVID-19. - Prescriptions for Diclofenac Sodium 75 mg Oral Tablet Sustained Release - take 1 tablet by ORAL route 2 times per day; 30 tablet. Augmentin 875- 125 mg Oral Tablet - take 1 tablet by ORAL route every 12 hours for 10 days; 20 tablet. Medrol (Gibson) 4 mg Oral Tablets, Dose Pack - take 1 tablet by ORAL route as directed - follow package instructions; 1 packet. Albuterol Sulfate 90 mcg/actuation - inhale 1-2 puff by INHALATION route every 4-6 hours; 1 Inhaler. - School release form, Work release form, Medication Reconciliation Form, Thank You Letter, Antibiotic Education, Prescription Opioid Use form. - Follow up: Private Physician; When: Tomorrow; Reason: Recheck today's complaints. Signatures: Dispatcher [employer] [facility] Sruthi Deleon RN RN tw2 Atilio Schmitt RN RN bp Grayson Valencia MD MD ma2 Corrections: (The following items were deleted from the chart) 12:09 11:13 CORONAVIRUS+MR.LAB.BRZ ordered. [facility] EDMS 12:10 11:13 Influenza Screen (A ordered. [facility] EDMS 14:20 13:20 11/13/2020 13:20 Discharged to Home. Impression: Coronavirus infection, bp unspecified; Streptococcal pharyngitis. Condition is Stable. Discharge Instructions: Strep Throat, [id number]. Prescriptions for Diclofenac Sodium 75 mg Oral Tablet Sustained Release - take 1 tablet by ORAL route 2 times per day; 30 tablet, Augmentin 875-125 mg Oral Tablet - take 1 tablet by ORAL route every 12 hours for 10 days; 20 tablet. and Forms are Work release form, Medication Reconciliation Form, Thank You Letter, Antibiotic Education, Prescription Opioid Use. Follow up: Private Physician; When: Tomorrow; Reason: Recheck today's complaints. ma2
[2020-11-13] MEDS ORDERED: AMOX/K CLAV 875 MG TAB ONE (13:23)
[2020-11-13 14:29] VITALS: O2SAT 97
[2020-11-13 14:30] VITALS: BP 110/65; TEMP 98.9
--- NOTE | 2020-11-14 17:03 | EKG ---
Test Date: 2020-11-13 Test Time: 11:39:21 Speech Pathologist Assistant: SURAJ MEASUREMENT RESULTS: Intervals: Rate: 100 IL: 160 QRSD: 84 QT: 318 QTc: 410 Vanduser: P: 23 IL: 160 QRS: 103 T: 17 INTERPRETIVE STATEMENTS: Normal sinus rhythm Rightward axis Borderline ECG No previous ECG available for comparison Electronically Signed On 11-14-20 17:00:44 CDT by Yoav Tucker
== END 2020-11-13 14:20 | disposition home or self-care (01) ==
LOC: ER 11:03
DX: U07.1 COVID-19 (principal); J02.0 Streptococcal pharyngitis
CPT/HCPCS: 85025; 80048; 36415; 83735; 82550; 85610; 80076; 87081; 85730; 84484; 82553; 83690; 0240U; 70450; 72125; 71045; J7030; 93005; 96360; 96361; 99284